=== PATIENT | male | born 1975 | race Caucasian/White ===

== ENCOUNTER → 2016-11-23 | Outpatient (CLI) | payer OTHER ==
--- NOTE | 2016-11-23 20:00 | DX ---
Lumbar Spine, 4 Views INDICATION: Low back pain and left-sided sciatica. No priors for comparison. FINDINGS: There is straightening of the normal lumbar lordosis. There is degenerative disc height los s or at least disc height loss at L5-S1 that is moderate. No associated osteophyte formation or vacuu m disc phenomenon. The disc spaces are otherwise well preserved throughout the other levels. The face ts are mildly sclerotic at L5-S1 bilaterally. The foramen are within normal limits on the oblique vie ws. SI joints are symmetric. The visualized soft tissues are normal. IMPRESSION: Disc height loss at L5-S1 without associated osteophyte formation.
== END ==
LOC: FIMAGING 11:06
PROVIDERS: ATTEND Family Medicine Sports Medicine
DX: M54.32 Sciatica, left side (principal)